=== PATIENT | male | born 1960 | race Hispanic/Latino ===

== ENCOUNTER 2018-09-26 08:46 | Emergency (ER) | payer OTHER ==
[2018-09-26] MEDS ORDERED: Lidocaine 1% PF 5 ML VIAL ONE (09:00)
[2018-09-26] MEDS ORDERED: Acetaminophen 500 MG TAB ONE (09:00)
[2018-09-26] MEDS ORDERED: Lidocaine 1% (PF) 30 ML VIAL ONE (09:01)
--- NOTE | 2018-09-26 09:22 | CT ---
CT OF THE BRAIN WITHOUT CONTRAST: Date: 09/26/18 INDICATION: History of head injury after having a forklift jolt causing the patient to hit his head on a crossbar . The patient has a slight headache with a history of positive loss of consciousness. Patient reports lethargy after the event. The patient has a laceration to the head. COMPARISON: None. FINDINGS: The skull appears intact. Mastoid air cells are clear. Visualized paranasal sinuses are clear. No acu te intracranial hemorrhage, hydrocephalus, or midline shift is evident. IMPRESSION: No acute intracranial abnormality. POS: TPC
--- NOTE | 2018-09-26 10:11 | CT ---
CT CERVICAL SPINE WITH CORONAL AND SAGITTAL REFORMATIONS: Date: 09/26/18 HISTORY: Head injury, neck trauma, neck pain, headache. FINDINGS/IMPRESSION: There are mild degenerative changes, most prominent at C5-6 level. No acute fracture or subluxation i s seen. No facet malalignment is identified. POS: OFF
== END 2018-09-26 10:51 | disposition home or self-care (01) ==
LOC: ERS 08:46
DX: S06.9X1A Unspecified intracranial injury with loss of consciousness of 30 minutes or less, initial encounter (principal); S01.01XA Laceration without foreign body of scalp, initial encounter; S01.81XA Laceration without foreign body of other part of head, initial encounter; M10.9 Gout, unspecified; W22.8XXA Striking against or struck by other objects, initial encounter; Y92.69 Other specified industrial and construction area as the place of occurrence of the external cause
CPT/HCPCS: 12002; 70450; 72125; J2001